=== PATIENT | male | born 1935 | race Caucasian/White ===

== ENCOUNTER → 2016-06-01 | Outpatient (CLI) | payer MEDICARE, OTHER ==
[~2016-06-01] MED LIST: ASPIRIN EC81 MG PO; CAFFEINE 200 MG PO; COLACE100 MG PO; DULCOLAX10 MG R; FLOMAX0.4 MG PO; GLUCOPHAGE1000 MG PO; HYDROCERIN)(MI236 ML TOP; IMDUR30 MG PO; K-TAB 10MEQ10 MEQ PO; LAMISIL AT 1% CRE1 % TOP; LANTUS (IN100 UNIT/M SUB-Q; LASIX40 MG PO; LIPITOR80 MG PO; LYRICA 100MG C100 MG PO; NITROSTAT0.4 MG SL; NORCO 5-325 MG1 TAB PO; PROTONIX40 MG PO; PROVENTIL OR V6.7 GM INH; PROVIGIL100 MG PO; SINEMET 25/2501 TAB PO; TOPROL XL25 MG PO; TRIAMCINOLONE TOP; TYLENOL325 MG PO
== END | disposition disaster alternative care site (69) ==
LOC: GRAD 11:19
DX: M54.12 Radiculopathy, cervical region (principal); R20.0 Anesthesia of skin; M47.812 Spondylosis without myelopathy or radiculopathy, cervical region